=== PATIENT | male | born 1980 | race Caucasian/White ===

== ENCOUNTER 2018-11-23 11:16 | Outpatient (CLI) | payer OTHER | END 2018-11-23 23:59 | disposition home or self-care (01) | LOC: CFH 11:16 | PROVIDERS: ATTEND Physician Assistant Surgical | DX: S62.315A Displaced fracture of base of fourth metacarpal bone, left hand, initial encounter for closed fracture (principal); S62.612A Displaced fracture of proximal phalanx of right middle finger, initial encounter for closed fracture; S62.642A Nondisplaced fracture of proximal phalanx of right middle finger, initial encounter for closed fracture; S62.141A Displaced fracture of body of hamate [unciform] bone, right wrist, initial encounter for closed fracture; S63.266A Dislocation of metacarpophalangeal joint of right little finger, initial encounter; M79.89 Other specified soft tissue disorders; R60.0 Localized edema; X58.XXXA Exposure to other specified factors, initial encounter; Y93.89 Activity, other specified; Y92.89 Other specified places as the place of occurrence of the external cause; Y99.8 Other external cause status ==